=== PATIENT | male | born 1990 | race Caucasian/White ===

== ENCOUNTER 2022-08-20 12:13 | Emergency (ER) | payer SELFPAY ==
[~2022-08-20] VITALS: Ht 172.7 cm; Wt 68.0 kg
[2022-08-20 12:25] VITALS: BP 173/120
[2022-08-20] MEDS ORDERED: LORAZEPAM 0.5MG TABLET PO ONE (13:45)
== END 2022-08-20 14:49 | disposition home or self-care (01) ==
LOC: ER 12:39
DX: F15.10 Other stimulant abuse, uncomplicated (principal); F17.210 Nicotine dependence, cigarettes, uncomplicated
CPT/HCPCS: 99283